=== PATIENT | male | born 1970 | race Caucasian/White ===

== ENCOUNTER 2018-02-18 13:39 | Emergency (ER) | payer BC, OTHER ==
[2018-02-18 14:10] VITALS: BP 140/102
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
[2018-02-18] MEDS: IBUPROFEN 800 MG TABLET PO STA ×2 (15:11→15:26)
[2018-02-18] MEDS ORDERED: ONDANSETRON ODT 4 MG TABLET TL STA (15:22)
--- NOTE | 2018-02-18 16:47 | Ultrasound Report ---
Procedure Date: 02/18/2018 Accession Number: [id number] / [id number] Procedure: US - Duplex Ext Veins Left CPT Code: FULL RESULT: EXAM: LEFT LOWER EXTREMITY VENOUS ULTRASOUND EXAM DATE: 02/18/2018 03:49 PM. CLINICAL HISTORY: Pain, swelling left calf and ankle. 4 days post left tibial plateau fracture ORIF. COMPARISON: None. TECHNIQUE: Real-time sonographic vascular imaging was performed by the waterworks pump station operator through the lower extremity utilizing both color-flow and Doppler spectral analysis. Multiple packaging sales representative static images were saved for review. FINDINGS: Common Femoral Vein (CFV): Normal. CFV-GSV Junction: Normal. Profunda Femoral Vein (PFV): Normal. Femoral Vein (FV) Prox: Normal. Femoral Vein (FV) Mid: Normal. Femoral Vein (FV) Dist: Normal. Popliteal Vein: Normal. Posterior Tibial Veins: Normal. Peroneal Veins: Normal. IMPRESSION: No evidence for deep venous thrombosis. [facility]
== END 2018-02-18 17:16 | disposition home or self-care (01) ==
LOC: ED 13:39
DX: G89.18 Other acute postprocedural pain (principal)
CPT/HCPCS: 93971; 99283; A9270; Q0162

== ENCOUNTER 2018-03-14 10:09 | Outpatient (CLI) | payer OTHER ==
--- NOTE | 2018-03-14 11:03 | XRAY Report ---
Procedure Date: 03/14/2018 Accession Number: [id number] / [id number] Procedure: XRS - Foot 3 View LT CPT Code: FULL RESULT: EXAM: Foot 3 View LT DATE: 03/14/2018 10:40 AM CLINICAL HISTORY: PERSISTENT FOOT PAIN AND SWELLING COMPARISON: None. TECHNIQUE: 3 views. FINDINGS: Bones: Normal. No fractures or bone lesions. Joints: Normal. No subluxations. Soft Tissues: Soft tissue swelling. No foreign body. IMPRESSION: Soft tissue swelling. No evidence of fracture. RAD[facility]
== END 2018-03-14 10:10 | disposition home or self-care (01) ==
LOC: DI.S 10:09
PROVIDERS: ATTEND Registered Nurse
DX: M79.672 Pain in left foot (principal); R22.42 Localized swelling, mass and lump, left lower limb

== ENCOUNTER 2018-09-11 10:56 | Outpatient (CLI) | payer OTHER ==
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
== END 2018-09-11 10:57 | disposition home or self-care (01) ==
LOC: DI 10:56
PROVIDERS: ATTEND Naturopath
DX: M48.04 Spinal stenosis, thoracic region (principal); Z87.311 Personal history of (healed) other pathological fracture
CPT/HCPCS: 72070

== ENCOUNTER 2019-07-08 20:08 | Emergency (ER) | payer OTHER ==
[2019-07-08 20:26] VITALS: BP 114/80
[2019-07-08] MEDS ORDERED: chlorproMAZINE 25 MG TABLET PO STA (20:52)
--- NOTE | 2019-07-08 20:55 | ED Physician Documentation ---
History of Present Illness - Stated complaint Stated Complaint: BILATERAL LEG RASH - Chief complaint Chief Complaint: Wound - History obtained from History obtained from: Patient - History of Present Illness Timing: Today Pain level max: 0 Pain level now: 0 - Additonal information Additional information: 48-year-old male presents to the emergency department he states that he was placed on Bactrim and Keflex recently for a cellulitis of the left lower extremity. States the cellulitis is improving but started having a diffuse body wide rash today. No prior history of allergies to sulfa. No difficulty breathing. No difficulty swallowing. No wheezing. No stridor. He also states that he has had hiccups for the past 4 days. Taking Reglan without relief. Review of Systems Constitutional: denies: Fever, Chills GI: denies: Vomiting, Diarrhea Skin: denies: Rash Musculoskeletal: denies: Neck pain, Back pain Neurologic: denies: Headache PD PAST MEDICAL HISTORY - Past Medical History Past Medical History: No Endocrine/Autoimmune: None - Past Surgical History Past Surgical History: Yes Ortho: Other - Present Medications Home Medications: Ambulatory Orders Medication Instructions Recorded Confirmed Clindamycin HCl [Clindamycin 300MG 300 mg PO Q6H #28 capsule 07/08/19 CAP] chlorproMAZINE [Thorazine] 25 mg PO TID PRN #10 tablet 07/08/19 - Allergies Allergies/Adverse Reactions: Allergies Allergy/AdvReac Type Severity Reaction Status Date / Time No Known Drug Allergies Allergy Verified 02/18/18 14:06 - Social History Does the pt smoke?: Yes Smoking Status: Former smoker Does the pt drink ETOH?: Yes Does the pt have substance abuse?: No - Immunizations Immunizations are current?: Yes PD ED PE NORMAL - Vitals Vital signs reviewed: Yes - General General: Alert and oriented X 3, No acute distress, Well developed/nourished - HEENT HEENT: PERRL, Moist mucous membranes - Neck Neck: Supple, no meningeal sign - Cardiac Cardiac: RRR, Strong equal pulses - Respiratory Respiratory: No respiratory distress, Clear bilaterally - Abdomen Abdomen: Soft, Non tender, Non distended - Derm Derm: Warm and dry, Other (Mild diffuse papular exanthem over the bilateral lower extremities, now coming up the back and abdominal wall. Blanches easily.) - Extremities Extremities: Other (Minimal cellulitis to the anterior left tibia. No swelling. No drainage. No fluctuance. No joint involvement. Full range of motion of the joint without pain.) - Neuro Neuro: Alert and oriented X 3 - Psych Psych: Normal mood, Normal affect Results - Vitals Vitals: Vital Signs - 24 hr 07/08/19 20:19 Temperature 36.9 C Heart Rate 87 Respiratory 15 Rate Blood Pressure 114/80 O2 Saturation 100 Oxygen O2 Source Room air PD MEDICAL DECISION MAKING - ED course Complexity details: considered differential, d/w patient, d/w family ED course: 48-year-old male presents to the emergency department with what appears to be an allergic reaction to Bactrim. We will stop the Bactrim and change him to clindamycin. He also has intractable hiccups, will trial on Thorazine. No evidence of septic joint. No evidence of anaphylaxis. Patient counseled regarding signs and symptoms for which I believe and urgent re-evaluation would be necessary. Patient with good understanding of and agreement to plan and is comfortable going home at this time This document was made in part using voice recognition software. While efforts are made to proofread this document, sound alike and grammatical errors may occur. Departure - Departure Disposition: 01 Home, Self Care Clinical Impression: Hiccups Cellulitis Qualifiers: Site of cellulitis: extremity Site of cellulitis of extremity: lower extremity Laterality: left Qualified Code(s): L03.116 - Cellulitis of left lower limb Allergic reaction Qualifiers: Encounter type: initial encounter Qualified Code(s): T78.40XA - Allergy, unspecified, initial encounter Condition: Good Instructions: ED Infec Skin Cellulitis, ED Drug React Allergic Follow-Up: Jessica Polanco PA [Primary Care Provider] - Within 1 week Prescriptions: chlorproMAZINE [Thorazine] 25 mg PO TID PRN #10 tablet PRN Reason: hiccoughs Clindamycin HCl [Clindamycin 300MG CAP] 300 mg PO Q6H #28 capsule Comments: It appears that you are having allergic reaction of the Bactrim. Stop this. We will start you on clindamycin instead. You can stop the Keflex as well. You can try the Thorazine for the hiccups. Return if you worsen. Follow-up with your doctor in 3 to 4 days for a wound check. The rash will last for several days.
== END 2019-07-08 21:52 | disposition home or self-care (01) ==
LOC: ED 20:08
DX: Z87.891 Personal history of nicotine dependence (principal); R06.6 Hiccough; L03.116 Cellulitis of left lower limb; L25.8 Unspecified contact dermatitis due to other agents; T36.8X5A Adverse effect of other systemic antibiotics, initial encounter; Y92.9 Unspecified place or not applicable
CPT/HCPCS: 99282; 99284

== ENCOUNTER 2019-10-09 20:22 | Emergency (ER) | payer OTHER ==
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
--- NOTE | 2019-10-09 21:14 | XRAY Report ---
Reason: pain swelling Procedure Date: 10/09/2019 Accession Number: [id number] / [id number] Procedure: XR - Wrist 3 View LT CPT Code: Final Report FULL RESULT: EXAM: LEFT WRIST RADIOGRAPHY EXAM DATE: 10/09/2019 08:32 PM. CLINICAL HISTORY: Pain and swelling, left wrist. COMPARISON: None. TECHNIQUE: 3 views. FINDINGS: Bones: Normal. No fractures or bone lesions. Joints: Normal. No subluxations. Soft Tissues: Normal. No soft tissue swelling. IMPRESSION: Normal wrist radiography. [facility]
[2019-10-09 21:41] VITALS: BP 105/72
== END 2019-10-09 21:44 | disposition home or self-care (01) ==
LOC: ED 20:22
DX: S69.92XA Unspecified injury of left wrist, hand and finger(s), initial encounter (principal); W22.8XXA Striking against or struck by other objects, initial encounter; Y93.89 Activity, other specified; Y92.008 Other place in unspecified non-institutional (private) residence as the place of occurrence of the external cause; Z87.891 Personal history of nicotine dependence
CPT/HCPCS: 99282; 99283

== ENCOUNTER 2021-01-07 07:50 | Outpatient (CLI) | payer OTHER ==
--- NOTE | 2021-01-07 19:03 | XRAY Report ---
PROCEDURE: Hand 2 View RT INDICATIONS: LOCALIZED SWELLING,[place] RIGHT UPPER LIMB TECHNIQUE: 2 views of the hand(s) acquired. COMPARISON: None FINDINGS: Bones: No fractures or dislocations. No suspicious bony lesions. No gross bony erosive changes. Soft tissues: No suspicious soft tissue calcifications. IMPRESSION: Unremarkable radiographic examination of right hand. Reviewed by: Joe Llanos MD on 01/07/2021 7:02 PM PDT Approved by: Joe Llanos MD on 01/07/2021 7:02 PM PDT Station ID: [id number]
== END 2021-01-07 07:51 | disposition home or self-care (01) ==
LOC: DI.S 07:50
PROVIDERS: ATTEND Nurse Practitioner Family
DX: R22.31 Localized swelling, mass and lump, right upper limb (principal)